=== PATIENT | female | born 1935 | race Caucasian/White ===

== ENCOUNTER 2018-11-19 14:03 | Emergency (ER) | payer MEDICARE, MEDICAID, SELFPAY ==
[2018-11-19 14:00] VITALS: BP 173/85; PULSE 82; RESP 20; TEMP 37; O2SAT 99
--- NOTE | 2018-11-19 14:22 | DI.RAD.S_ITS ---
PROCEDURE: XR CHEST 2V INDICATIONS: cough, cp TECHNIQUE: 2 views of the chest were acquired. COMPARISON: None. FINDINGS: Surgical changes and devices: None. Lungs and pleura: No pleural effusions or pneumothorax. Lungs are clear. Mediastinum: Mediastinal contours are normal. Heart size is normal. Bones and chest wall: No suspicious bony abnormalities. Soft tissues appear unremarkable. IMPRESSION: Normal for age and body habitus. Source of cough is not seen. Dictated by: Jason Del Rio M.D. on 11/19/2018 at 15:47 Approved by: Jason Del Rio M.D. on 11/19/2018 at 15:47
[2018-11-19 14:30] VITALS: BP 140/104; PULSE 83; RESP 20; O2SAT 97
--- NOTE | 2018-11-19 14:36 | ED.CHESTPAIN ---
HPI - Chest Pain General Chief Complaint: Chest Pain Stated Complaint: chest discomfort/coughing Time Seen by Provider: 11/19/18 14:09 Source: patient Mode of arrival: ambulatory Limitations: no limitations History of Present Illness HPI narrative: Patient complains of a cough for about a month. She states she thought she just had an upper respiratory infection, but it does not seem to want to go away. Patient states she has not had measurable fevers, but sometimes has felt hot. No chills. She has had some mild dyspnea. She states her cough is minimally productive. Patient states that at the doctor's office, they gave her a nebulizer treatment, but she stopped early, because it was not helping, was making her feel worse. Patient states she had about a 1 min episode of pain in her left lateral rib cage, but this has gone away. Pain was mild, and about a 4/10. Nothing made it better or worse, and it spontaneously resolved. Related Data Home Medications Medication Instructions Recorded Confirmed Pepto-Bismol 30 ml PO Q2H PRN MDD 8 doses 11/19/18 11/19/18 acetaminophen 325 mg PO Q8H PRN 11/19/18 11/19/18 albuterol sulfate [ProAir HFA] 2 puff INHALATION Q4-6H PRN 11/19/18 11/19/18 aspirin 81 mg PO DAILY 11/19/18 11/19/18 azithromycin See Label Instructions .ROUTE 11/19/18 11/19/18 .COMPLEX ipratropium-albuterol 3 ml INHALATION QID PRN 11/19/18 11/19/18 meclizine 25 mg PO TID PRN 11/19/18 11/19/18 metoprolol succinate 25 mg PO DAILY 11/19/18 11/19/18 multivitamin 1 tab PO DAILY 11/19/18 11/19/18 vit C-vit [id number]-rag-om-3 1 tab PO BID 11/19/18 11/19/18 [Ocuvite] Previous Rx's Medication Instructions Recorded albuterol sulfate 2 puff INHALATION Q4-6H PRN #8 gram 11/19/18 Allergies Allergy/AdvReac Type Severity Reaction Status Date / Time ampicillin Allergy Verified 11/19/18 15:00 diphenhydramine Allergy Verified 11/19/18 15:00 [From Benadryl] morphine Allergy Verified 11/19/18 15:00 promethazine [From Phenergan] Allergy Verified 11/19/18 14:16 Review of Systems Constitutional Denies chills, Denies fever(s), Denies lethargy and Denies weakness Eyes Denies change in vision, Denies eye discharge, Denies irritation and Denies loss of vision ENT Ears, Nose, Mouth, and Throat: Denies change in voice, Denies neck pain and Denies sore throat Cardiovascular Denies chest pain, Denies irregular heart rhythm, Denies lightheadedness, Denies palpitations, Reports dyspnea and Denies orthopnea Respiratory Reports cough, Reports dyspnea and Denies wheezing Gastrointestinal Gastrointestinal: Denies abdominal pain, Denies change in bowel habits, Denies diarrhea, Denies nausea and Denies vomiting Genitourinary Denies hematuria, Denies flank pain, Denies urinary incontinence and Denies urinary urgency Musculoskeletal Denies neck pain Integumentary/Breasts Denies pruritus, Denies erythema, Denies rash and Denies wounds Neurologic Denies confusion, Denies loss of vision and Denies weakness Psychiatric Denies anxiety, Denies confusion, Denies depression, Denies homicidal ideation and Denies suicidal ideation Endocrine Denies palpitations Hematologic/Lymphatic Denies easy bruising Allergic/Immunologic Denies wheezing PFSH Medical History Asthma (Acute) Surgical History No pertinent past surgical history (Acute) Social History Smoking Status: Never smoker Exam Initial Vital Signs Initial Vital Signs: Vital Signs Temperature 98.6 F 11/19/18 14:00 Pulse Rate 82 11/19/18 14:00 Respiratory Rate 20 11/19/18 14:00 Blood Pressure 173/85 H 11/19/18 14:00 Pulse Oximetry 99 11/19/18 14:00 Const General: cooperative and well developed Nutritional Appearance: well nourished Orientation: alert, awake, oriented x3 and not confused [facility] Head: normocephalic and atraumatic Ears: external ears normal Nose: external nose normal and No nasal discharge Face and sinus: face symmetric and No dry mucous membranes Mouth: oral mucosae normal and moist mucous membranes Teeth and gingiva: dentition normal Eyes General: appearance normal, both eyes and all related structures Eyelids: eyelids normal Conjunctivae: conjunctivae normal Sclera: sclerae normal Pupils: PERRL EOM: EOM intact bilaterally Neck Neck: normal visual inspection, trachea midline, No lymphadenopathy, No midline deformity and No JVD Lymphatic: No lymphedema Chest Chest: normal inspection of the chest Resp Effort & Inspection: normal respiratory effort, able to speak in complete sentences, no respiratory distress and no use of accessory muscles Auscultation: clear to auscultation bilaterally, no rales, no rhonchi and no wheezes Cardio Rate: regular rate Rhythm: regular rhythm Heart Sounds: no click, no gallops, no murmurs and no rubs Pulses: normal peripheral pulses GI Inspection: non-distended Palpation: soft, no hepatosplenomegaly, No guarding, No pulsatile mass and No tender Back/Spine/Pelvis Back: No CVA tenderness Cervical Spine: cervical ROM normal and No pain with cervical ROM Thoracic/Lumbar Spine: thoracic and lumbar spine normal to inspection Skin General: no rashes or lesions noted, No jaundice and No petechiae Neuro General: alert, oriented x3, gait normal and no focal motor deficits Speech: speech normal Extrem General: full ROM, no clubbing, cyanosis or edema, no pedal edema and no calf tenderness Psych Appearance: well kempt Mental Status: mental status grossly normal Attitude: cooperative Thought Content: normal and suicidality Judgment: judgment good Course Course Narrative: Patient was very well appearing in the emergency department. Her lungs were clear, her respirations were comfortable, and her oxygen saturation was normal. The patient had already received a breathing treatment, and had got a prescription for Zithromax from her primary care physician. I sent her for a chest x-ray, which was unremarkable. I discussed with the patient that at this point, I really do not find any evidence of a serious cause of her symptoms. She may have started with a viral URI initially, and either contracted another 1 or maybe having a low-lying exacerbation of her asthma, which is presenting as an ongoing cough. I will restart her on an albuterol inhaler, which she has used before without the negative effects of the nebulizer treatment. I do not feel that she needs steroids at this time. If the patient continues to have constant cough, then she will need to talk to her primary care physician about further options. She is not on any Angel inhibitors, and is not known to have any allergies. We have discussed the usual indications for return, as well as for follow-up. Orders Ordered: ED Orders 11/19/18 14:22 CXR [XR chest 2V] Stat 11/19/18 14:23 EKG-12 Lead Stat Vital Signs - 8 hr 11/19/18 14:00 11/19/18 14:30 11/19/18 15:00 Temperature 98.6 F Pulse Rate 82 83 83 Respiratory Rate 20 20 18 Blood Pressure 173/85 H Blood Pressure [Left Arm] 140/104 H 128/77 Pulse Oximetry 99 97 97 11/19/18 16:00 Temperature Pulse Rate 87 Respiratory Rate 20 Blood Pressure 128/77 Blood Pressure [Left Arm] Pulse Oximetry 98 MDM - Chest Pain Medical Records Data Attestation: I reviewed the patient's medical records. Lab Data Attestation: I reviewed the patient's lab results. Urine Dip Bedside Urine Glucose Negative Bedside Urine Bilirubin - Negative Bedside Urine Ketone - Negative Urine Specific [place] 1.025 Bedside Urine Occult Blood - Negative Bedside Urine pH 6.0 Bedside Urine Protein - Negative Bedside Urine Urobilinogen - Negative Bedside Urine Nitrite - Negative Bedside Urine Leukocytes - Negative Esterase Imaging Data Chest x-ray: Attestation: I personally reviewed and interpreted this imaging study as follows: (Negative) Radiologist's impression: NDICATIONS: cough, cp TECHNIQUE: 2 views of the chest were acquired. COMPARISON: None. FINDINGS: Surgical changes and devices: None. Lungs and pleura: No pleural effusions or pneumothorax. Lungs are clear. Mediastinum: Mediastinal contours are normal. Heart size is normal. Bones and chest wall: No suspicious bony abnormalities. Soft tissues appear unremarkable. IMPRESSION: Normal for age and body habitus. Source of cough is not seen. Dictated by: Jason Del Rio M.D. on 11/19/2018 at 15:47 Approved by: Jason Del Rio M.D. on 11/19/2018 at 15:47 Discharge Plan Departure Patient Disposition: Home Clinical Impression: Upper respiratory infection, Cough Discharge Date/Time: 11/19/18 16:01 Interventions: ED Discharge Assessment Last Done: 11/19/18 16:00 Instructions: DI for Cough -- Adult, DI for Viral Upper Respiratory Infection -- Adult Activity Restrictions/Additional Instructions: Your chest x-ray looks good. There is no evidence of pneumonia or heart failure. You most likely have an upper respiratory infection, and this may have triggered a component of your underlying asthma. Please use your inhaler, as needed, and follow up with your primary doctor if your symptoms are not better in a week. Prescriptions: New albuterol sulfate 90 mcg/actuation HFA aerosol inhaler 2 puff INHALATION Q4-6H PRN (Reason: shortness of breath or wheezing) Qty: 8 RF: 0 No Action multivitamin Tablet 1 tab PO DAILY RF: 0 acetaminophen 325 mg Tablet 325 mg PO Q8H PRN (Reason: pain) RF: 0 metoprolol succinate 25 mg Tablet Extended Release 24 Hr 25 mg PO DAILY RF: 0 albuterol sulfate [ProAir HFA] 90 mcg/actuation Hfa Aerosol Inhaler 2 puff Inhalation Q4-6H PRN (Reason: Shortness Of Breath) RF: 0 vit C-vit [id number]-[id number]-om-3 [Ocuvite] [id number]-[id number]-po-mg Capsule 1 tab PO BID RF: 0 ipratropium-albuterol 0.5 mg-3 mg(2.5 mg base)/3 mL Solution For Nebulization 3 ml Inhalation QID PRN (Reason: Wheezing) RF: 0 azithromycin 250 mg Tablet See Label Instructions .ROUTE .COMPLEX RF: 0 aspirin 81 mg Tablet,Delayed Release (Dr/Ec) 81 mg PO DAILY RF: 0 meclizine 25 mg Tablet 25 mg PO TID PRN (Reason: Dizziness) RF: 0 Pepto-Bismol 30 ml PO Q2H MDD 8 doses PRN (Reason: Acid Reflux) RF: 0
[2018-11-19 15:00] VITALS: BP 128/77; PULSE 83; RESP 18; O2SAT 97
[2018-11-19 16:00] VITALS: BP 128/77; PULSE 87; RESP 20; O2SAT 98
== END 2018-11-19 16:01 | disposition home or self-care (01) ==
PROVIDERS: Emergency Provider Emergency Medicine
DX: J06.9 Acute upper respiratory infection, unspecified (principal); R06.00 Dyspnea, unspecified; R07.81 Pleurodynia; R07.9 Chest pain, unspecified
CPT/HCPCS: 71046; 81003; 93005; 93010; 99283; 99285